=== PATIENT | male | born 1950 | race American Indian/Alaskan Native ===

== ENCOUNTER 2018-09-02 07:22 | Day surgery (SDC) | payer BC ==
[~2018-09-02 07:22] MED LIST: ALBU90OI6 INH; DIPH50 PO; EPIPEN0.3 MG/0.3; FISH OIL 1,0001 EAC1 PO; Glucosamine &1 EACH PO; HYDCHL25 PO; IBUP600 PO; LORA.5 PO; LOSA50 PO; MOME220I INH; MOMENI; SIMV10 PO
--- NOTE | 2018-09-02 07:54 | NUR ---
Ambulatory in Day Surgery History, Chart, Medications and Allergies reviewed before start of procedure.Patient confirms NPO status and agrees with scheduled surgery. Pre-Op teaching done. Pt verbalizes understanding. Patient States Post-Procedure ride home has been arranged.
--- NOTE | 2018-09-02 07:58 | NUR ---
PRIMARY RN ([email or web address]) WILL ASSUME CARE OF PT.
--- NOTE | 2018-09-02 08:17 | NUR ---
Patient up to Ambulate independently. Gait steady. History, Chart, Medications and Allergies reviewed before start of procedure. Lungs clear T/O to Auscultation. Patient confirms NPO status and agrees with scheduled surgery. Patient States Post-Procedure ride home has been arranged.
--- NOTE | 2018-09-02 11:38 | NUR ---
LT GROIN CDI. VSS. WILL CONTINUE TO MONITOR.
--- NOTE | 2018-09-02 12:04 | NUR ---
Discharge instructions reviewed with patient. Patient verbalizes understanding. Copy given to patient to take home. has pt rx. no questions or concerns with going home. drsg cdi to left groin. pt ready to be d/c. pt has all personal belongings.
--- NOTE | 2018-09-02 12:07 | NUR ---
WILL BE PT RIDE HOME.
== END 2018-09-02 22:39 | disposition home or self-care (01) ==
LOC: ORSCMMR 07:22 → ORD 08:45 → ORSCMMR 22:39
PROVIDERS: Surgery
PROC: 0YU60JZ Supplement Left Inguinal Region with Synthetic Substitute, Open Approach (ICD-10-PCS; principal; 2018-09-02 08:45)
DX: K40.90 Unilateral inguinal hernia, without obstruction or gangrene, not specified as recurrent (principal); I10 Essential (primary) hypertension; J45.909 Unspecified asthma, uncomplicated; Z79.899 Other long term (current) drug therapy
CPT/HCPCS: A9270-GY; C1781; J0690; J1100; J1885; J2250; J2405; J3010; J7120

== ENCOUNTER → 2019-06-16 | Outpatient (CLI) | payer BC | END | disposition home or self-care (01) | LOC: PLD 08:05 → LAB SHORT 08:05 | DX: H00.15 Chalazion left lower eyelid (principal) | CPT/HCPCS: 88305 ==

== ENCOUNTER 2024-08-19 08:56 | Day surgery (SDC) | payer BC ==
[~2024-08-19] VITALS: Ht 171 cm; Wt 83.9 kg
[2024-08-19] VITALS (10 sets, daily range): BP systolic 106–146; BP diastolic 59–85
[~2024-08-19 08:56] MED LIST changes: +Acetaminophen 500 MG Tab PO SCH; +CeFAZolin Sodium 2,000 MG in NS 100 ML IV SCH; +Chlorhexidine Mouth Care 15 ML UDC MT SCH; +Lactated Ringer's 1,000 ML IV SCH; +OxyCODONE HCL 10 MG TABCR PO SCH; +Ropivacaine 0.5% HCl/Pf 123.125 MG,EPINEPHrine HCL 0.25 MG,Ketorolac Tromethamine 15 MG... INFIL SCH; +Simvastatin10 MG PO; +Tranexamic Acid 100 ML IV SCH
[2024-08-19] MEDS ORDERED: propofoL 40 ML IV ONE (09:20)
[2024-08-19] MEDS ORDERED: FentaNYL Citrate 50 MCG/ML 2 ML Injection ONE (09:20)
[2024-08-19] MEDS ORDERED: Prochlorperazine Edisylate 10 mg Vial IV PRN (10:00)
[2024-08-19] MEDS ORDERED: Bisacodyl 10 MG Supp PR PRN (10:00)
[2024-08-19] MEDS ORDERED: Magnesium Hydroxide Conc 10 ML UDC PO PRN (10:00)
[2024-08-19] MEDS ORDERED: Promethazine HCl 25 MG Tab PO PRN (10:00)
[2024-08-19] MEDS ORDERED: DiphenhydrAMINE HCL 25 MG Cap PO PRN (10:00)
[2024-08-19] MEDS ORDERED: Lactated Ringer's 1,000 ML IV SCH (10:05)
[2024-08-19] MEDS ORDERED: Metoclopramide HCl 5MG / ML 2ML Vial IV PRN (10:05)
[2024-08-19] MEDS ORDERED: FLU VACC TS2024-25(6MOS UP)/PF 45 MCG/0.5 ML SYRINGE IM SCH (10:05)
[2024-08-19] MEDS ORDERED: HYDROmorphone HCl/Pf 1MG SYR IV PRN (10:05)
[2024-08-19] MEDS ORDERED: OxyCODONE HCL 5 MG TAB PO PRN ×2 (10:10)
[2024-08-19] MEDS ORDERED: LORazepam 0.5 MG Tab PO PRN (10:10)
[2024-08-19] MEDS ORDERED: Ondansetron HCl 2 MG / ML 2ML Vial IV PRN (10:10)
[2024-08-19] MEDS ORDERED: Albuterol HFA200 ACT/6.7 GM INH INH PRN (10:25)
[2024-08-19] MEDS ORDERED: propofoL 20 ML IV ONE ×2 (11:25→11:57)
[2024-08-19] MEDS ORDERED: Ketorolac Tromethamine 15mg Vial IV SCH (12:00)
[2024-08-19] MEDS ORDERED: Ketorolac Tromethamine 30mg Vial ONE (13:03)
--- NOTE | 2024-08-19 13:33 | NUR ---
ARRIVAL S/P LTHA PT DENIES PAIN AT THIS TIME. REPORTS FULL SENSATION WHEN ASKED, ABLE TO LIFT AND HOLD LEG UP. AQUACEL X3 CDI. CAP REFILL <3. PPX4. PT ON ROOM AIR. LOOKING FORWARD TO WORKING WITH THERAPY, HOPING TO GO HOME TODAY. CURRENTLY EATING JELLO AND CRACKERS, TOLERATING WATER. CALL LIGHT PROVIDED. PT WILL CALL IF HE STARTS FEELING PAIN.
[2024-08-19] MEDS ORDERED: Acetaminophen 500 MG Tab PO SCH (16:00)
[2024-08-19] MEDS ORDERED: ACET500 PO (17:13)
[2024-08-19] MEDS ORDERED: ASPI81CH PO (17:14)
[2024-08-19] MEDS ORDERED: OXYC5 PO (17:15)
--- NOTE | 2024-08-19 17:42 | NUR ---
DISCHARGE PT HAS WORKED w/ BOTH THERAPIES. PAIN WELL CONTROLLED. EATING, DRINKING, & VOIDED. DID HAVE AN EPISODE OF N/V, BUT EATING & DRINKING POST. ADELA & OTONIEL WASSERMAN SENT w/ PT. ESCORTED OUT VIA W/C.
[2024-08-19] MEDS ORDERED: CeFAZolin Sodium 2,000 MG in NS 100 ML IV SCH (18:30)
[2024-08-19] MEDS ORDERED: Docusate Sodium 100 MG Cap PO SCH (21:00)
[2024-08-20] MEDS ORDERED: Docosahexanoic Acid/EPA 1,000 MG CAP PO SCH (09:00)
[2024-08-20] MEDS ORDERED: HydroCHLOROthiazide 25 mg Tab PO SCH (09:00)
[2024-08-20] MEDS ORDERED: Atorvastatin 10 MG Tab PO SCH (09:00)
[2024-08-20] MEDS ORDERED: Misc. Capsule PO SCH (09:00)
[2024-08-20] MEDS ORDERED: Aspirin 81 MG Chew PO SCH (09:00)
[2024-08-20] MEDS ORDERED: Losartan Potassium 50 MG Tab PO SCH (09:00)
== END 2024-08-19 17:50 | disposition home or self-care (01) ==
LOC: ORSCMMR 08:56 → ORD 10:45 → SURS 13:01 → ORSCMMR 17:50
PROVIDERS: Orthopaedic Surgery
PROC: 0SRB0JA Replacement of Left Hip Joint with Synthetic Substitute, Uncemented, Open Approach (ICD-10-PCS; principal; 2024-08-19 10:45)
DX: M16.12 Unilateral primary osteoarthritis, left hip (principal); I10 Essential (primary) hypertension; J45.909 Unspecified asthma, uncomplicated; Z79.899 Other long term (current) drug therapy
CPT/HCPCS: 72170; 97110; 97116; 97161; 97165; 97530; 97535; A9270; C1713; C1776; J0171; J0690; J0735; J1885; J2405; J2704; J2795; J3010; J7120